=== PATIENT | male | born 2000 | race Caucasian/White ===

== ENCOUNTER 2020-10-08 15:02 | Emergency (ER) | payer OTHER ==
[~2020-10-08] VITALS: Ht 182.9 cm; Wt 65.9 kg
[2020-10-08] MEDS ORDERED: MULTIVITAMIN -ADULT INJECTION 10 ML, THIAMINE INJection 100 MG, FOLIC ACID 1 MG in NS 1... IV ONE (16:45)
[2020-10-08 17:21] LABS: BASO % 0.1 % (0.0-1.0); HEMATOCRIT 47.9 % (42.0-52.0); HEMOGLOBIN 16.6 g/dl (13.5-17.5); LYMPH # 0.7 10^3/uL (1.5-5.0); LYMPH % 5.2 % (24.0-44.0); MEAN CORPUSCULAR HGB CONC 34.7 g/dl (32.0-36.5); MEAN CORPUSCULAR VOLUME 86.6 fl (80.0-96.0); MONO # 0.4 10^3/uL (0.0-0.8); MONO % 3.2 % (2.0-8.0); NEUTROPHILS # 11.5 10^3/uL (1.5-8.5); NEUTROPHILS % 91.1 % (36.0-66.0); PLATELET COUNT, AUTOMATED 233 10^3/uL (150-450); RED BLOOD COUNT 5.53 10^6/uL (4.30-6.10); WHITE BLOOD COUNT 12.6 10^3/uL (4.0-10.0)
[2020-10-08 17:53] LABS: ALBUMIN 4.8 GM/DL (3.2-5.2); ALT/SGPT 25 U/L (12-78); BILIRUBIN,TOTAL 0.5 MG/DL (0.2-1.0); BLOOD UREA NITROGEN 8 MG/DL (7-18); CALCIUM LEVEL 9.3 MG/DL (8.5-10.1); CARBON DIOXIDE LEVEL 30 MEQ/L (21-32); CHLORIDE LEVEL 108 MEQ/L (98-107); CREATININE FOR GFR 0.88 MG/DL (0.70-1.30); GLUCOSE, FASTING 106 MG/DL (70-100); POTASSIUM SERUM 4.5 MEQ/L (3.5-5.1); SODIUM LEVEL 143 MEQ/L (136-145); TOTAL PROTEIN 8.1 GM/DL (6.4-8.2)
[2020-10-08 22:47] LABS: ETHYL ALCOHOL (ETHANOL) 0.124 % (0.000-0.010)
[2020-10-08] MEDS ORDERED: ONDANSETRON 4 MG ORAL DISINTEGRATING TAB PO ONE (23:05)
[2020-10-08 23:20] VITALS: BP 148/86
== END 2020-10-08 23:24 | disposition home or self-care (01) ==
LOC: M ED 15:02
DX: F10.20 Alcohol dependence, uncomplicated (principal); Z88.0 Allergy status to penicillin; Z88.4 Allergy status to anesthetic agent
CPT/HCPCS: 80053; 82077; 85025; 96365; 96366; 99283; J3411; Q0162

== ENCOUNTER 2022-02-08 03:09 | Emergency (ER) | payer OTHER ==
[~2022-02-08] VITALS: Ht 182.9 cm; Wt 72.7 kg
[2022-02-08 03:11] VITALS: BP 140/77
== END 2022-02-08 03:33 | disposition left against medical advice (07) ==
LOC: M ED 03:09
DX: Z53.21 Procedure and treatment not carried out due to patient leaving prior to being seen by health care provider (principal)